=== PATIENT | male | born 1995 | race African-American/Black ===

== ENCOUNTER 2019-10-29 06:21 | Emergency (ER) | payer SELFPAY ==
[~2019-10-29] VITALS: Ht 177.8 cm; Wt 90.9 kg
[2019-10-29 06:44] VITALS: BP 138/70
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
== END 2019-10-29 07:26 | disposition home or self-care (01) ==
LOC: ER 06:21
DX: G89.11 Acute pain due to trauma (principal); V89.2XXA Person injured in unspecified motor-vehicle accident, traffic, initial encounter; Y93.89 Activity, other specified; Y92.89 Other specified places as the place of occurrence of the external cause; Y99.8 Other external cause status
CPT/HCPCS: 99281